=== PATIENT | male | born 2000 | race Two or more races ===

== ENCOUNTER 2025-09-03 16:59 | Emergency (ER) | payer MEDICAID, SELFPAY ==
[2025-09-03 18:07] VITALS: BP 137/89; PULSE 97; RESP 20; TEMP 36.8; O2SAT 96; BMI 26.4
--- NOTE | 2025-09-03 18:11 | XR_ITS ---
EXAMINATION: Lumbar spine 3 views TECHNIQUE: AP lateral, lateral lower lumbar spine 3 views Date and time: September 03, 2025, 1812 hours INDICATIONS: Injury to the lower back today, lower back pain. FINDINGS: No acute lumbar fracture Grade 1 spondylolisthesis L5 on S1 Mild disc narrowing L4-L5, L5-S1 No lumbar fracture Spina bifida L5 IMPRESSION: No acute lumbar fracture Grade 1 spondylolisthesis L5 on S1 Mild degenerative disc disease L4-L5, L5-S1
--- NOTE | 2025-09-03 19:40 | PD.EDBACK ---
ED Back Injury Pain RME/HPI General Chief Complaint: Back Pain/Injury Stated Complaint: PULLED MUSCLE IN BACK Time Seen by Provider: 09/03/25 17:22 Arrival date/time: 09/03/25 16:59 This is a case of 55-year-old male with no medical history came into the emergency room due to lower back pain today after gym exercise due to worsening of the pain now the patient decided to sought consult here in the emergency room denies any injury or trauma denies any numbness weakness tingling sensation or incontinence of urine or stool Limitations: no limitations Related Data Previous Rx's ?Medication ?Instructions ?Recorded baclofen 10 mg tablet 10 mg PO BID PRN muscle spasm #10 09/03/25 tabs hydrocodone 5 mg-acetaminophen 325 1 tab PO Q6H PRN pain #16 tabs 09/03/25 mg tablet prednisone 20 mg tablet See Taper PO QDAY 5 days #5 tabs 09/03/25 Allergies Allergy/AdvReac Type Severity Reaction Status Date / Time No Known Allergies Allergy Verified 09/03/25 17:01 Review of Systems Review of Systems Systems Reviewed: All systems reviewed, normal except as documented Past Medical History Social History SMOKING STATUS: Former smoker ED Exam General Limitations: Present no limitations General appearance: Present alert, in no apparent distress and other (Patient is awake alert oriented not in distress nontoxic looking well-hydrated well-nourished) Head Head exam: Present atraumatic, normocephalic and normal inspection Eye Eye exam: Present normal appearance, PERRL and EOMI ENT ENT exam: Present normal exam, normal oropharynx and mucous membranes moist Neck Neck exam: Present normal inspection, full ROM and trachea midline; Absent tenderness, meningismus or lymphadenopathy Chest Chest inspection: Present normal inspection and symmetric chest wall rise; Absent tenderness Respiratory Respiratory exam: Present normal lung sounds bilaterally; Absent respiratory distress, wheezes, stridor, accessory muscle use or prolonged expiratory phase Cardiovascular Cardiovascular exam: Present regular rate, normal rhythm and normal heart sounds; Absent bradycardia, tachycardia, irregular rhythm, systolic murmur or diastolic murmur Abdominal Exam Abdominal exam: Present soft and normal bowel sounds; Absent distention, tenderness, guarding, rebound, rigidity, diminished bowel sounds, hyperactive bowel sounds, hypoactive bowel sounds or organomegaly Extremities Exam Extremities exam: Present normal inspection and full ROM Back Exam Back exam: Present normal inspection, full ROM, tenderness (Mild to moderate tenderness to L1 L5 no crepitation no deformity no cellulitis no abscess no paraspinal no paravertebral tenderness ROM intact neurovascular intact) and muscle spasm; Absent CVA tenderness (R), CVA tenderness (L), paraspinal tenderness, vertebral tenderness, sciatic notch tenderness (R), sciatic notch tenderness (L), straight leg raise (R) or straight leg raise (L) Neurological Exam Neurological exam: Present alert, oriented X3, CN II-XII intact, normal gait and reflexes normal Psychiatric Psychiatric exam: Present normal affect and normal mood Skin Skin exam: Present warm, dry, intact and normal color Course Quality Measures none Orders Category Date Time Status XR lumbar spine 2-3V Stat Exams 09/03/25 18:11 Completed Dexamethasone Inj [Decadron Inj] Med 09/03/25 18:11 Discontinued 10 mg IM X1 ONE HYDROcodone*/APAP 5/325 [[place] 5/325] Med 09/03/25 18:11 Discontinued 1 tab PO X1 ONE Ketorolac Inj [Toradol Inj] Med 09/03/25 18:11 Discontinued 30 mg IM X1 ONE Vital Signs Vital signs: Vital Signs Temperature 98.3 F 09/03/25 18:07 Pulse Rate 97 09/03/25 18:07 Respiratory Rate 20 09/03/25 18:07 Blood Pressure 137/89 H 09/03/25 18:07 Pulse Oximetry (%) 96 09/03/25 18:07 Oxygen Delivery Method Room Air 09/03/25 18:07 Oxygen saturation is 96% in room air Back Pain / Injury MDM Narrative MDM Narrative:: This is a case of 55-year-old male with no medical history came into the emergency room due to lower back pain today after gym exercise due to worsening of the pain now the patient decided to sought consult here in the emergency room denies any injury or trauma denies any numbness weakness tingling sensation or incontinence of urine or stool physical examination patient is awake alert oriented not in distress nontoxic looking well-hydrated well-nourished abdominal exam is benign nonsurgical no guarding no rebound no rigidity no CVA tenderness bladder is not distended not tender neurological exam is normal awake alert oriented x 4 no focal deficit GCS 15/15 steady gait lumbar exam noted mild to moderate tenderness on the L1 L5 with no swelling no crepitation no deformity no cellulitis no abscess no paravertebral no paraspinal tenderness leg raise exam is normal steady gait no CVA tenderness the rest of the physical examination neurological exam is normal and unremarkable CT scan of the lumbar showed a DDD of the lumbar but no fracture no dislocation patient was given Toradol dexamethasone and [place] which improved and resolve the pain patient will follow-up with PCP to be referred to neurosurgeon for possible MRI to rule out herniated disc and pain management doctor for pain control for any worsening symptoms or any emergent concerns such as numbness weakness tingling sensation incontinence to urine or stool call 911 or go to the nearest emergency room at the time of exam no signs and symptoms of cauda equina Patient was discharged with comfortable condition walking with stable gait. Patient verbalized no further complains explained diagnosis and answered patient question. Patient is comfortable with the proposed management plan including the need to follow up with his/her primary care physician and any specialist if applicable Discussed patient for any urgent condition or worsening sx, He/She needed to go to emergency room immediately or call 911. Patient acknowledge the responsibility to follow up as instructed and to monitor her/his symptoms. For any persistence of the symptoms for more than 3-5 days return precaution advised. Discussed the result of the test and was given printed discharge instruction Patient data External records reviewed:: [facility] previous records Clinical information provided by:: patient Social determinants that could affect healthcare access:: none Patient has the following chronic illnesses:: None How is presenting disease/condition affected by chronic disease/condition?: no chronic disease Evaluation data The following diagnostics were reviewed and interpreted by me:: radiology exam(s) Lab and/or radiology exams considered but not ordered:: Reviewed Interpretation Summary: Reviewed Medications / Prescriptions Medications or Prescriptions considered but not ordered:: Given Medication administrations:: Medication Administration History Discontinued Medications Hydrocodone Bitart/Acetaminophen (Hydrocodone/Apap 5/325 Tablet) 1 tab PO X1 ONE Stop: 09/03/25 18:12 Dexamethasone Sodium Phosphate (Dexamethasone Sod Phos Inj 10 Mg/Ml Vial) 10 mg IM X1 ONE Stop: 09/03/25 18:12 Ketorolac Tromethamine (Ketorolac Inj 60 Mg/2 Ml Vial) 30 mg IM X1 ONE Stop: 09/03/25 18:12 Given Consultations Consultation(s) initiated? (list below): No Diagnosis Differential diagnosis back pain/injury: lumbar radiculopathy, sciatica, thoracic back pain and other (Lumbar sprain) Most likely diagnosis given after review of the tests above:: DDD lumbar back muscle spasm Admission Indicated Admission indicated?: not indicated Explain why admission is indicated or not indicated:: Not indicated Admission Request Was there a request for admission?: No Admission Attestation Admission request attestation: Not indicated Disposition Plan Disposition Plan: Discharge Discharge Attestation Discharge Attestation: The patient and all family members were given an opportunity to ask questions and understood the discharge instructions. Discharge instructions specifically effects, indications for sooner follow up or return to the emergency department, and the expected course of current diagnosis. Patient condition: Stable Discharge Plan Plan Patient Disposition: HOME (Self Care) Patient condition on transfer: Stable Prescriptions/Referrals Prescriptions/Med Rec: New hydrocodone-acetaminophen 5-325 mg tablet 1 tab PO Q6H MDD max 4 tabs per day PRN (Reason: pain) Qty: 16 0RF prednisone 20 mg tablet See Taper PO QDAY 5 Days Qty: 5 0RF Taper: Prednisone Taper 20 mg DAILY for 2 Days and 0 Hour 10 mg DAILY for 2 Days and 0 Hour 5 mg DAILY for 7 Days and 0 Hour baclofen 10 mg tablet 10 mg PO BID PRN (Reason: muscle spasm) Qty: 10 0RF Referrals: No Primary/Family,Physician [Primary Care Provider] - In 1 week Problem List Clinical Impression: Back muscle spasm, DDD (degenerative disc disease), lumbar Patient/Caregiver Discharge Instructions Education Materials: ED Back Spasm, No Trauma, ED Degenerative Disk Disease Additional Instructions: Follow-up with your primary care physician in 2 days for reevaluation and to be referred to neurosurgeon for further evaluation and treatment of DDD lumbar for possible MRI to rule out herniated disc and to be referred to pain management doctor for pain control worsening symptoms or any emergent concerns such as numbness weakness tingling sensation incontinence to urine or stool call 911 or go to the nearest emergency room take your medication as directed do not take [place] and baclofen at the same time no driving while taking this medication ice pack and warm compress as needed for pain no pulling no pushing no lifting more than 5 to 10 pounds use of back brace is advised Print Language: [place] Stand Alone Forms: [facility] Award Info., Patient Portal Info Letter PA/RADHA Supervising Physician KATHY/RADHA Supervising Physician: Dr. mac
--- NOTE | 2025-09-03 21:13 | PC.NURSE ---
PT CALLED BACK FROM [facility] FOR MEDICATIONS NO ANSWER
[2025-09-03] MEDS: HYDROcodone/APAP 5/325 TABLET 1 TAB PO (21:20)
[2025-09-03] MEDS: DEXAMETHASONE SOD PHOS INJ 10 MG/ML VIAL PO (21:20)
== END 2025-09-03 21:32 | disposition home or self-care (01) ==
PROVIDERS: Emergency Provider Emergency Medicine
DX: S39.92XA Unspecified injury of lower back, initial encounter (principal); X50.0XXA Overexertion from strenuous movement or load, initial encounter
CPT/HCPCS: 72100; 99283; J1100; A9270